=== PATIENT | female | born 1955 | race Caucasian/White ===

== ENCOUNTER 2019-11-22 14:57 | Inpatient (IN) | payer OTHER ==
[~2019-11-22] VITALS: Ht 162.6 cm; Wt 94.2 kg
[2019-11-22 14:59] VITALS: BP 132/78
[2019-11-22] MEDS ORDERED: AMITRIPTYLINE H75 M2 PO (15:01)
[2019-11-22] MEDS ORDERED: PRINIVIL10 MG PO (15:02)
[2019-11-22 15:23] LABS: INFLUENZA A ANTIGEN Positive (Negative); INFLUENZA B ANTIGEN Negative (Negative)
[2019-11-22 15:41] LABS: ABSOLUTE LYMPHOCYTES 0.3 thou/uL (0.8-5.3); ABSOLUTE MONOCYTES 0.4 thou/uL (0.0-1.2); ABSOLUTE NEUTROPHILS 2.9 thou/uL (1.6-8.1); BASOPHILS 0.6 %; HEMATOCRIT 36.6 % (37.0-47.0); HEMOGLOBIN 12.8 gm/dL (12.0-15.0); LYMPHOCYTES 7.8 %; MCH 31.5 pg (26.0-34.0); MCHC 34.9 g/dL (28.0-37.0); MCV 90.2 fL (80.0-100.0); MONOCYTES 12.2 %; MPV 7.2 fl. (7.2-11.1); NUCLEATED RBCS 0 /100WBC; PLATELET COUNT* 143 thou/uL (150-400); POLYS 79.4 %; RBC 4.05 mil/uL (4.20-5.00); RDW-CV 13.2 % (10.5-14.5); WBC 3.6 thou/uL (4.0-11.0)
[2019-11-22 15:52] LABS: CALCIUM 7.3 mg/dL (8.5-10.1); CREATININE 0.9 mg/dL (0.6-1.3); POTASSIUM 3.3 mmol/L (3.5-5.1)
[2019-11-22 15:57] LABS: ALBUMIN 3.2 g/dL (3.4-5.0); TOTAL BILIRUBIN 1.1 mg/dL (<0.1-1.0); TOTAL PROTEIN 6.4 g/dL (6.4-8.2)
[2019-11-22 17:13] LABS: BE -5.3 mmol/L (-2 to +3); PCO2 31.8 mmHg (35.0-45.0); pH 7.386 (7.340-7.450)
[2019-11-22 17:16] LABS: PO2 56.3 mmHg (75.0-100.0)
--- NOTE | 2019-11-22 18:54 | NUR ---
THIS NURSE GAVE REPORT TO BRENT DAVIS WHO IS TO ASSUME PT CARE AT THIS TIME.
[2019-11-22] MEDS ORDERED: BP MED (19:34)
[2019-11-22 19:45] VITALS: BP 126/52
[2019-11-22 20:00] VITALS: BP 133/70; BP 134/69
[2019-11-22 23:53] VITALS: BP 108/63
[2019-11-23 03:45] VITALS: BP 142/68
--- NOTE | 2019-11-23 04:06 | NUR ---
RECEIVED PT FROM ED PER CART AT APPROX 1950 ACCOMPANIED BY RYAN KENNEDY. PT IS AWAKE AND ORIENTED X4. VSS ON 2L OF O2/NC. ADVANCED DEVELOPER PUT ON AND PT IS TRACING ST/SR. ADMISSION ASSESSMENTS DONE AND CHARTED. PT IS ADVISED ON THE USE OF CALL LIGHT AND ON THE ROOM SET UP, BED LOCKED IN LOWEST POSITION. DROPLET PRECAUTIONS MAINTAINED. PT IS ABLE TO SLEEP MOST OF THE NIGHT. HOURLY ROUNDING DONE FOR PT SAFETY.
[2019-11-23 07:27] LABS: HEMATOCRIT 31.9 % (37.0-47.0); MCH 31.3 pg (26.0-34.0); MCHC 34.7 g/dL (28.0-37.0); MCV 90.4 fL (80.0-100.0); MPV 7.4 fl. (7.2-11.1); NUCLEATED RBCS 0 /100WBC; PLATELET COUNT* 117 thou/uL (150-400); RBC 3.52 mil/uL (4.20-5.00); RDW-CV 13.4 % (10.5-14.5); WBC 2.8 thou/uL (4.0-11.0)
[2019-11-23 08:00] VITALS: BP 135/69
[2019-11-23 08:11] LABS: ABSOLUTE LYMPHOCYTES 0.6 thou/uL (0.8-5.3); ABSOLUTE MONOCYTES 0.3 thou/uL (0.0-1.2); ATYPICAL LYMPHS 1 %; HYPOCHROMASIA 1+; PLATELET ESTIMATE DECREASED
[2019-11-23 08:34] LABS: ALBUMIN 2.5 g/dL (3.4-5.0); CALCIUM 6.9 mg/dL (8.5-10.1); CREATININE 0.7 mg/dL (0.6-1.3); POTASSIUM 3.4 mmol/L (3.5-5.1); TOTAL BILIRUBIN 0.4 mg/dL (<0.1-1.0); TOTAL PROTEIN 5.4 g/dL (6.4-8.2)
--- NOTE | 2019-11-23 11:45 | NUR ---
MET WITH PT AND DTR TO DISCUSS HOME SITUATION/DC PLANNING. PT LIVES WITH PARENTS. SHE IS INDEPENDENT AND ACTIVE. USES NO EQUIPMENT. PT DENIES ANY DC NEEDS. PLANS TO RETURN HOME AT DC. WILL FOLLOW
[2019-11-23 12:00] VITALS: BP 137/76
[2019-11-23] MEDS ORDERED: VERAPAMIL E.R240 M1 PO (12:51)
[2019-11-23] MEDS ORDERED: TRANDOLAPRIL2 MG PO (12:51)
[2019-11-23 16:14] VITALS: BP 126/66
--- NOTE | 2019-11-23 17:07 | EKG ---
[place] [address] ELECTROCARDIOGRAM REPORT Name: KATHY BERG Room: [address] ADM IN .R.#: [id number] Admission: 11/22/19 Attend Phys: Maryanne Coello Discharge: Date of : 55 Report #: [id number] THIS REPORT FOR: //name// [facility] ED Test Date: 2019-11-22 Test Time: 15:24:28 Pat Name: KAHTY BERG Department: Room: [facility] Gender: F Platform Builder: [facility] : 1955 Requested By: Raisa Mena Order Number: [id number] MD: Luis Fernando Gutierrez Measurements Intervals [place] Rate: 106 P: 63 WA: 146 QRS: 31 QRSD: 93 T: 26 QT: 323 QTc: 429 Interpretive Statements Sinus tachycardia No previous ECG available for comparison Electronically Signed On 11-23-2019 17:06:28 ADMINISTRATIVE SERVICES SPECIALIST by Luis Fernando Gutierrez [email or web address] <ELECTRONICALLY SIGNED> By: Luis Fernando Gutierrez MD, [facility] 11/23/19 1706 1524 152 Luis Fernando Gutierrez MD, FACC /EPI
--- NOTE | 2019-11-23 17:12 | EKG ---
[place] [address] ELECTROCARDIOGRAM REPORT Name: KATHY BERG Room: [address] ADM IN M.R.#: [id number] Admission: 11/22/19 Attend Phys: Maryanne Coello Discharge: Date of : 55 Report #: [id number] THIS REPORT FOR: //name// [facility] Test Date: 2019-11-23 Test Time: 09:22:26 Pat Name: KATHY BERG Department: Room: [address] Gender: F Prn Occupational Therapist: : 1955 Requested By: Primo Way Order Number: [id number] MD: Luis Fernando Gutierrez Measurements Intervals [place] Rate: 77 P: 47 AK: 137 QRS: 39 QRSD: 101 T: 34 QT: 372 QTc: 421 Interpretive Statements Sinus rhythm Abnormal R-wave progression, early transition No previous ECG available for comparison Electronically Signed On 11-23-2019 17:11:45 TIMBER SPOTTER by Luis Fernando Gutierrez [email or web address] <ELECTRONICALLY SIGNED> By: Luis Fernando Gutierrez MD, [facility] 11/23/19 1711 1 1 Luis Fernando Gutierrez MD, FAC /EPI
--- NOTE | 2019-11-23 17:55 | NUR ---
PT UP IN ROOM WITH STEADY GAIT. IVF INFUSING. PT REPORTS FEELING BETTER THAN YESTERDAY. NSR ON MONITOR. AFEBRILE
[2019-11-23 20:00] VITALS: BP 143/68
[2019-11-24 00:10] VITALS: BP 135/73
--- NOTE | 2019-11-24 03:48 | NUR ---
ASSUMED PT CARE AT APPROX 1930. PT IS AWAKE AND ORIENTED X4. VSS ON 2L OF O2/NC. MANAGEMENT TRAINEE PROGRAM STORES IN PLACE TRACING SR. ASSESSMENT DONE AND CHARTED. PT C/O SOME NAUSEA AND BODY ACHE RELIEVED BY MEDS GIVEN PER JAN. PT REMAINED AFEBRILE THIS SHIFT. FALL PRECAUTIONS IN PLACE. HOURLY ROUNDING DONE FOR PT SAFETY. CALL LIGHT WITHIN REACH.
[2019-11-24 04:39] VITALS: BP 124/54
[2019-11-24 05:26] LABS: ABSOLUTE LYMPHOCYTES 1.1 thou/uL (0.8-5.3); ABSOLUTE MONOCYTES 0.3 thou/uL (0.0-1.2); BASOPHILS 0.6 %; HEMATOCRIT 35.3 % (37.0-47.0); HEMOGLOBIN 12.3 gm/dL (12.0-15.0); LYMPHOCYTES 44.5 %; MCH 31.3 pg (26.0-34.0); MCHC 34.9 g/dL (28.0-37.0); MCV 89.5 fL (80.0-100.0); MONOCYTES 12.9 %; MPV 8.1 fl. (7.2-11.1); NUCLEATED RBCS 0 /100WBC; PLATELET COUNT* 131 thou/uL (150-400); RBC 3.94 mil/uL (4.20-5.00); RDW-CV 13.4 % (10.5-14.5); WBC 2.4 thou/uL (4.0-11.0)
[2019-11-24 05:41] LABS: PREALBUMIN 13.9 mg/dL (18.0-35.7)
[2019-11-24 05:53] LABS: ALBUMIN 2.8 g/dL (3.4-5.0); CALCIUM 7.2 mg/dL (8.5-10.1); CREATININE 0.7 mg/dL (0.6-1.3); POTASSIUM 3.2 mmol/L (3.5-5.1); TOTAL BILIRUBIN 0.4 mg/dL (<0.1-1.0); TOTAL PROTEIN 5.9 g/dL (6.4-8.2)
[2019-11-24 07:30] VITALS: BP 107/61
[2019-11-24 10:10] LABS: HEPATITIS B SURFACE AG Negative (Negative)
[2019-11-24] MEDS ORDERED: TAMIFLU75 MG PO (12:32)
[2019-11-24] MEDS ORDERED: CEFDINIR300 MG PO (12:32)
[2019-11-24] MEDS ORDERED: TESSALON PERLE100 MG PO (12:33)
[2019-11-24] MEDS ORDERED: MUCINEX600 MG PO (12:36)
[2019-11-24 12:38] VITALS: BP 107/61
== END 2019-11-24 16:17 | disposition home or self-care (01) | DRG 441 ==
LOC: M.ERS 14:57 → M.2W 16:51 → M.TBA-ER 16:51 → M.2W 19:50
PROVIDERS: Internal Medicine; Personal Emergency Response Attendant; ADMIT Internal Medicine
DX: B17.8 Other specified acute viral hepatitis (principal); J18.9 Pneumonia, unspecified organism; R65.10 Systemic inflammatory response syndrome (SIRS) of non-infectious origin without acute organ dysfunction; J11.1 Influenza due to unidentified influenza virus with other respiratory manifestations; I10 Essential (primary) hypertension; E83.51 Hypocalcemia; E66.9 Obesity, unspecified; Z68.35 Body mass index [BMI] 35.0-35.9, adult; Z88.6 Allergy status to analgesic agent; Z28.21 Immunization not carried out because of patient refusal; Z79.899 Other long term (current) drug therapy